=== PATIENT | female | born 1950 | race Caucasian/White ===

== ENCOUNTER → 2023-08-08 09:55 | Outpatient (REF) | payer MEDICARE, OTHER, SELFPAY | LOC: MRI 3T 09:55 | PROVIDERS: ATTENDING PHYSICIAN Orthopaedic Surgery; FAMILY PHYSICIAN Family Medicine | DX: M25.511 Pain in right shoulder (principal) | CPT/HCPCS: 73221 ==

== ENCOUNTER → 2023-11-12 13:39 | Outpatient (REF) | payer MEDICARE, OTHER, SELFPAY | LOC: PAVMRI 13:39 | PROVIDERS: ATTENDING PHYSICIAN Physician Assistant Surgical; FAMILY PHYSICIAN Family Medicine | DX: M25.552 Pain in left hip (principal); M54.50 Low back pain, unspecified | CPT/HCPCS: 72148; 73721 ==

== ENCOUNTER → 2024-10-04 15:49 | Outpatient (REF) | payer MEDICARE, OTHER, SELFPAY | LOC: RCS 15:49 | PROVIDERS: ATTENDING PHYSICIAN Internal Medicine Cardiovascular Disease; FAMILY PHYSICIAN Family Medicine | DX: I10 Essential (primary) hypertension (principal); I34.1 Nonrheumatic mitral (valve) prolapse | CPT/HCPCS: 93306 ==

== ENCOUNTER → 2025-02-20 12:27 | Outpatient (REF) | payer MEDICARE, OTHER, SELFPAY | LOC: EMG 12:27 | PROVIDERS: ATTENDING PHYSICIAN Pain Medicine Interventional Pain Medicine; FAMILY PHYSICIAN Family Medicine | DX: M54.16 Radiculopathy, lumbar region (principal); G72.9 Myopathy, unspecified | CPT/HCPCS: 95886; 95910 ==